=== PATIENT | female | born 1995 | race Two or more races ===

== ENCOUNTER 2024-10-09 05:55 | Day surgery (SDC) | payer MEDICAID, SELFPAY ==
--- NOTE | 2024-10-05 12:10 | ESHP_ITS ---
RE: ANURAG CAM : 1995 DATE OF ADMISSION: 10/09/2024 HISTORY OF PRESENT ILLNESS: This is a 29-year-old female who was seen because of symptomatic cholelithiasis. She was referred by the PAXimena at [facility]. The patient was in her usual health until January when she developed severe pain in the epigastric region radiating to the right side and to the back. She went to her primary care physician and ultrasound was ordered and unfortunately, it was not until June of this year, which revealed the gallstones. In this interval, the patient has had intermittent pain especially after eating. She is nauseated but no vomiting. She denies any history of jaundice or chills. She has had a history of gallstones in her mother who underwent surgery four years ago. The patient denies any other medical illness. PAST MEDICAL HISTORY: Essentially negative. PAST SURGICAL HISTORY: None. PHYSICAL EXAMINATION: GENERAL: Revealed a pleasant 29-year-old healthy female who speaks good Hungarian. She is 5 feet 2 inches tall, weighing 166 pounds. Her BMI is 27.79. VITAL SIGNS: Revealed temperature of 98.1, pulse 84, and BP 127/74. HEENT: Examination of the head normal. Eyes, ears, and throat were normal. NECK: Normal. CHEST: Revealed good breath sounds on both sides. HEART: Sinus rhythm. No murmurs. ABDOMEN: Showed considerable Striae gravidarum in the lower abdomen due to . Upper portion of the abdomen and evaluation showed no tenderness anywhere in the epigastric region or over the right upper quadrant. IMAGING: I reviewed ultrasound done at [facility] on 06/07/2024, which revealed multiple gallstones with thickening of the gallbladder wall suggesting possibly chronic cholecystitis. Common bile duct was normal in size. IMPRESSION: Symptomatic cholelithiasis with chronic cholecystitis. COURSE OF ACTION: I advised the patient to undergo laparoscopic cholecystectomy. The procedure was explained to her in detail and the gallbladder checklist was reviewed with her. The patient is agreeable to the procedure, which is scheduled on 10/09/2024. DT: 11:39:22 TT: 12:09:00 Ref: [id number] - TID: [id number]
[2024-10-08 07:44] VITALS: BMI 29.8
--- NOTE | 2024-10-08 08:10 | SUR.PREOP ---
Pt stated she had syncope episodes since 5 yrs old, she was seen by different Dr's at [facility], the pluck separator told her she had a murmur and will probably outgrow it, she has not follow up since then, pt stated she continues to have syncope episodes but not as frequent the last 2 yrs ago, she passes out and when she wakes up she feels tired for a couple of days, history shared with Dr Farmer and he requested pt to have cardiac clearance.
--- NOTE | 2024-10-08 08:52 | SUR.PREOP ---
Dr Lucio'iwona TRUONG, notified of pt's need for cardiac clearance.
--- NOTE | 2024-10-08 12:57 | SUR.PREOP ---
Dr Lucio called and stated he talked with Dr Farmer and both decided to continue with surgery.
--- NOTE | 2024-10-08 14:32 | EKG_ITS ---
[facility] Test Date: 2024-10-08 Pat Name: ANURAG CHOW Department: Room: - Gender: Female Connie Cleaner: KALPANA : 1995 Requested By: Yancy Kapoor Order Number: [id number] Reading MD: Yancy Kapoor Measurements Intervals Fertile Rate: 75 P: 66 UT: 166 QRS: 31 QRSD: 88 T: 35 QT: 378 QTc: 422 Interpretive Statements SINUS RHYTHM No previous ECG available for comparison /store/S0/[id number]/ecg/[id number].pdf
[2024-10-08 15:39] LABS: Basophils % (Auto) 0 % (0-2.5); Eosinophils % (Auto) 1 % (0-10); Hematocrit 39.3 % (36.0-46.0); Hemoglobin 12.9 g/dL (12.0-16.0); Immature Granulocytes % (Auto) 1 % (0-0); Immature Granulocytes Auto 0.03 Thou/mm3 (0.00-0.00); Lymphocytes # (Auto) 2.3 Thou/mm3 (1.0-4.8); Lymphocytes % (Auto) 39 % (10-50); Mean Corpuscular HGB Conc 32.8 g/dl (31.0-37.0); Mean Corpuscular Hemoglobin 27.5 pg (25.0-35.0); Mean Corpuscular Volume 84 fL (80-100); Monocytes # (Auto) 0.5 Thou/mm3 (0.0-0.8); Monocytes % (Auto) 8 % (0-12); Neutrophils # (Auto) 3.1 Thou/mm3 (1.8-7.7); Neutrophils % (Auto) 52 % (37-80); Nucleated Red Blood Cell % 0 /100 WBC (0); Platelet Count 289 Thou/mm3 (140-440); RDW Standard Deviation 40.3 fL (36.4-46.3); Red Blood Count 4.69 Miln/mm3 (4.00-5.20)
[2024-10-08 15:46] LABS: Partial Thromboplastin Time 29.5 Seconds (22.0-36.0); Prothrombin Time 10.9 Seconds (9.0-12.2)
--- NOTE | 2024-10-08 15:46 | SUR.PREOP ---
Confirm with pt will be here at 0600 tomorrow for surgery.
[2024-10-08 15:49] LABS: HCG Qualitative,Urine Negative
[2024-10-08 15:50] LABS: Alanine Aminotransferase 15 U/L (10-49); Albumin, Serum 4.8 gm/dL (3.5-5.0); Albumin/Globulin Ratio 1.8 (1.2-2.2); Alkaline Phosphatase 60 U/L (46-116); Anion Gap 8 (7-16); Aspartate Amino Transferase < 8 U/L (0-34); BUN/Creatinine Ratio 19 Ratio (12-20); Bilirubin,Total 0.6 mg/dL (0.3-1.2); Blood Urea Nitrogen 13 mg/dL (9-23); Calcium 9.6 mg/dL (8.3-10.6); Calcium (Corrected) 9.6 mg/dL (8.5-10.1); Chloride 104 mMol/L (98-107); Creatinine (Component) 0.7 mg/dL (0.6-1.3); Estimated Creatinine Clearance 113.8 mL/min (>60); Globulin 2.6 gm/dL (2.3-3.5); Glucose 84 mg/dL (74-106); Osmolality,Calculated 274 (275-295); Potassium 4.1 mMol/L (3.4-5.1); Sodium 138 mMol/L (136-145); Total Protein 7.4 gm/dL (5.7-8.2); eGFR > 60 See Note
[2024-10-09] VITALS (8 sets, daily range): BP systolic 115–126; BP diastolic 64–71; PULSE 68–104; RESP 13–20; TEMP 36.6–37.3; O2SAT 96–100
[2024-10-09] MEDS: RINGERS LACTATED 1000 ML 1,000 ML 20 ML IV (06:38)
--- NOTE | 2024-10-09 09:22 | SUR.PHASEI ---
0922: Pt. AAOx4, vitals stable, breathing unlabored, no complaint of pain or nausea, x4 dressing to ABD CDI, no active bleed noted, report received from MD Farmer and Jaqui MIRANDA.
[2024-10-09] MEDS: fentaNYL CIT INJ 50 mCg/ML AMP 2ML IV ×3 (09:33→09:49)
[2024-10-09] MEDS: METOCLOPRAMIDE INJ 5 MG/ML VIAL 2 ML 10 MG IVP (09:33)
--- NOTE | 2024-10-09 09:54 | PD.SUROPNT ---
Date of Procedure 10/09/24 Pre Op Diagnosis Symptomatic cholelithiasis Post Op Diagnosis Same Procedure Laparoscopic cholecystectomy Findings Patient is found to have a noninflamed gallbladder with adhesions and multiple gallstones Procedure Description After endotracheal anesthesia was given the patient was placed in supine position and the abdomen was prepped with chloroprep solution and draped in a sterile manner. After time out was performed I injected a few cc of of half percent Marcaine with epinephrine below the umbilicus and I made an incision for about 3 cm in length. The fascia was cleaned and Veress needle was inserted to create a pneumoperitoneum up to 15 mmHg. Then introduced a 12 mm trocar and a 10 mm camera through the fascia and I inspected the intra-abdominal organs as well as the gallbladder and the liver. Another 5 mm trocar was inserted in the epigastric region under direct vision after injecting some local anesthesia. At this time the patient was kept in reverse Trendelenburg position with the left lateral tilt. The third 5 mm trocar was inserted over the mid axillary line under direct vision and a Boris and Royce grasper was used to hold the fundus of the gallbladder. The retraction was carried out by the assistant mechanic moving the fundus of the gallbladder towards the right shoulder of the patient to create enough traction. I placed a another 5 mm trocar in the midaxillary line just lateral to the rectus muscle under direct vision. I used a fenestrated grasper to retract the neck of the gallbladder laterally towards the patient's right hip. The Calot's triangle was exposed and I achieved the critical view of safety as follows: I dissected out the fatty tissue from the hepatocystic triangle and cleared this area. I also dissected inferior and posterior to the gallbladder to identify the cystic duct and the gallbladder wall. Then superiorly I dissected along the cystic plate up to lower one third third of the gallbladder to lift the gallbladder from the liver. At this time I confirmed that only 2 structures entering the gallbladder were cystic artery and the cystic duct. The common duct was seen distally but no dissection was carried out around the duct. I did not see any need for operative cholangiogram in this patient. The cystic duct was clipped doubly and then divided and cystic artery was similarly dealt with. Then the gallbladder was removed from the liver bed using Harmonic zach to control the small blood vessels as the dissection proceeded. Then the gallbladder was from the liver bed completely and delivered through the umbilical port using an Endopouch. The liver bed was coagulated with cautery to obtain satisfactory hemostasis. The trocars were pulled out from the abdominal cavity and the fascia at the umbilical incision was closed with interrupted 0 Ethibond. Subcutaneous tissues was closed with 3-0 chromic and injected a few cc of half percent Marcaine with epinephrine and the skin was closed with interrupted 4-0 subcuticular Monocryl stitches at all the trocar sites. Dressing was applied with 2 x 2 and Tegaderm. Patient tolerated the procedure well and returned to recovery room in stable condition. Anesthesia GETA Pathology / specimen Other (Gallbladder and the stones) IVF Infused 600 Estimated Blood Loss 10 Condition Stable Disposition PACU Surgeon Yancy Kapoor MD Surgical Staff Operation Date: 10/09/24 08:00 Case Staff Anesthesiologist: Chico Farmer RNforeign broadcast specialist: Olivia Maya
[2024-10-09] MEDS: ONDANSETRON INJ 2 MG/ML INJ 2 ML 4 MG IV (10:11)
--- NOTE | 2024-10-09 10:26 | SUR.PHASEII ---
1026: Pt. AAOx4, vitals stable, breathing unlabored, no complaint of pain or nausea, x4 dressing to ABD CDI, no active bleed noted, Pt. tolerated sips of water well, pt. ambulated to wheelchair with steady gait no assist, no complications, gave discharge instructions to the pt. and her ride, both verbalized understanding and had no further questions. pt. left with all personal belongings.
== END 2024-10-09 10:26 | disposition home or self-care (01) ==
PROVIDERS: Anesthesiology; Referring Provider Surgery; Visit Provider Surgery
PROC: 0FT44ZZ Resection of Gallbladder, Percutaneous Endoscopic Approach (ICD-10-PCS; CPT 47562; principal; 2024-10-09 08:00)
DX: K80.10 Calculus of gallbladder with chronic cholecystitis without obstruction (principal); Z01.810 Encounter for preprocedural cardiovascular examination
CPT/HCPCS: 47562; 36415; 80053; 81025; 85025; 85610; 85730; 93005; A4217; A4649; J0131; J1100; J2250; J2405; J2704; J2710; J2765; J3010; J3490; J7120; J1596

== ENCOUNTER 2025-06-30 18:40 | Emergency (ER) | payer MEDICAID, SELFPAY ==
--- NOTE | 2025-06-30 20:27 | EDNOTE_ITS ---
ED Abdominal Pain RME/HPI General Chief Complaint: Abdominal Pain Stated complaint: ABD PAIN 07/12 Time seen by provider: 06/30/25 19:22 Arrival date/time: 06/30/25 18:40 RME / HPI RME / HPI narrative: DR. STANTON MAIN ED EVALUATION: Patient s/p cholecystectomy October 2024 presents with ongoing epigastric/RUQ abdominal pain x 1 month duration with increased frequency and intensity. Symptoms tend to worsen post-prandially. Recent onset loose stool, nausea without emesis, no fever or chills. Symptoms reminiscent of those prior to cholecystectomy. PMH: Unremarkable. PSH: Cholecystectomy Allergies: None Social: Negative for alcohol, tobacco, and illicit drug abuse. Related Data Previous Rx's ?Medication ?Instructions ?Recorded acetaminophen 300 mg-codeine 15 mg 1 tab PO Q8H PRN pa in #20 tabs 06/30/25 tablet hyoscyamine sulfate 0.125 mg 0.125 mg PO TID PRN cram ping #10 06/30/25 tablet (Levsin) tabs promethazine 12.5 mg tablet 12.5 mg PO TID PRN nausea and 06/30/25 vomiting #14 tabs Allergies Allergy/AdvReac Type Severity Reaction Status Date / Time No Known Allergies Allergy Verified 06/30/25 18:42 Review of Systems Review of Systems Systems Reviewed: All systems reviewed, normal except as documented Past Medical History Past Medical History CARDIAC: Positive Cardiac Disorders (Syncope from 5 to 10yrs, less frequent after that, last 2 yrs ago) and Heart Murmur GASTROINTESTINAL: Positive Gastrointestinal Disorders and Gall Bladder Disease REPRODUCTIVE: Positive Previous Pregnancies Family History FAMILY HISTORY: Positive Family Surgery ED Exam Narrative Physical exam: GEN. APPEARANCE: The patient is alert awake oriented X-3 in no distress, lying down comfortably, does not look ill/toxic. Patient has good eye contact. Patient is cooperative. VITALS: All vitals were reviewed and the pulse ox is 100% on room air which is normal according to my interpretation. HEENT: Normocephalic, atraumatic. Pupils are equal and reactive. Oral mucosa is moist. Patent Nares NECK: Supple, nontender, no thyromegaly, no meningismus, no JVD, no step offs CHEST: Symmetrical, atraumatic, and with equal expansion , Nontender on palpation no deformity and no crepitus. CARDIOVASCULAR: Heart regular rhythm no murmur or gallop rub or extra beats. LUNGS: Clear to auscultation bilaterally with symmetrical chest rise. No laboring tachypnea or wheezing. No intercostal subcostal retraction. No rales and no rhonchi. ABDOMEN: Soft, flat. Mildly tender at mid-epigastric/RUQ, no peritonel findings noted, no guarding or rebound tenderness. There are no abnormal masses palpated. Active and normal bowel sounds. EXTREMITIES: Nontender. No edema. No cyanosis. Patient is able to move all 4 extremities well, with full ROM and good CSM. SKIN: Warm and dry, no jaundice or rashes noted. MUSCULOSKELETAL: No lubar or midline bony tenderness. There is no CVA tenderness. No paraspinal muscle spasm or tenderness. NEURO: Patient is GARZA x 4, Cranial nerves II through XII grossly intact. There is no focal neurologic deficits noted. GCS is 15, PNS and C[employer]S [employer]OTECTION INSPECTOR appear grossly intact. PSYCHIATRIC: Patient is in normal mood and affect, cooperative, no SI or HI or hallucinations. Course Quality Measures none Orders Category Date Time Status US abdomen limited Stat Exams 06/30/25 20:31 Completed CBC [CBC] Stat Lab 06/30/25 20:42 Completed CMP [Comprehensive Metabolic Panel] Stat Lab 06/30/25 20:42 Completed Hepatitis Acute Panel Stat Lab 06/30/25 20:42 Completed Lipase Stat Lab 06/30/25 20:42 Completed HYDROcodone*/APAP 5/325 [[place] 5/325] Med 06/30/25 20:31 Discontinued 1 tab PO X1 ONE Ondansetron Odt [Zofran Odt] Med 06/30/25 20:31 Discontinued 4 mg PO X1 ONE Vital Signs Vital signs: Vital Signs Temperature 98.7 F 06/30/25 21:50 Pulse Rate 71 06/30/25 21:50 Respiratory Rate 18 06/30/25 21:50 Blood Pressure 129/73 06/30/25 21:50 Pulse Oximetry (%) 100 06/30/25 21:50 Oxygen Delivery Method Room Air 06/30/25 21:50 Abdominal Pain MDM MDM Narrative MDM Narrative:: Scribe Attestation: I, Nila Graff, am scribing for and in the presence of Dr. Stanton. Provider Notation: Although this document has been carefully reviewed, there may still be some phonetic and other typographical errors. These errors are purely grammatical due to imperfections in the software program and should not be construed in any way to compromise the substance of the patient's medical care during this visit. Patient s/p cholecystectomy October 2024 presents with ongoing epigastric/RUQ abdominal pain x 1 month duration with increased frequency and intensity. Symptoms tend to worsen post-prandially. Please see PE findings. Laboratory markers demonstrate normal WBC of 7.2, no anemia, no thrombocytopenia. No left shift or associated bandemia. Serum chemistries demonstrate elevated Chloride of 113, and increased transaminases: AST 276 and ALT 137. Total bilirubin, Alkaline phosphatase, and Albumin are normal. A limited abdominal US was performed which demonstrates a normal CBD and without evidence of hepatic lesion, no fluid within gall bladder fossa. Low-dose IM narcotic analegesics/anit-emetics administered with subjective [id number] relief. No critical process identifiable at this time. Will treat symptomatically and will refer to PMD for F/U. Final diagnosis includes RUQ abdominal pain and ? early Hepatitis. Precautionary instructions issued, F/U with PMD advised. Patient data External records reviewed:: [facility] previous records (No recent ED records available for review) Clinical information provided by:: patient Social determinants that could affect healthcare access:: none Patient has the following chronic illnesses:: None reported How is presenting disease/condition affected by chronic disease/condition?: no chronic disease Evaluation data The following diagnostics were reviewed and interpreted by me:: lab results and radiology exam(s) Lab and/or radiology exams considered but not ordered:: None Interpretation Summary: RADIOLOGY Abdomen US: Findings: Absent gallbladder Normal common bile duct 0.3 cm Pancreatic head 2.0 cm Liver 12.7 cm no liver lesions Normal hepatopedal portal venous flow Patent IVC Impression: Absent gallbladder Normal common bile duct Medications / Prescriptions Medications or Prescriptions considered but not ordered:: None Medication administrations:: Medication Administration History Discontinued Medications Hydrocodone Bitart/Acetaminophen (Hydrocodone/Apap 5/325 Tablet) 1 tab PO X1 ONE Stop: 06/30/25 20:32 Last Admin: 06/30/25 22:24 Dose: 1 tab Documented By: ELLEN Ondansetron HCl (Ondansetron Odt 4 Mg Tabrap) 4 mg PO X1 ONE; Protocol Stop: 06/30/25 20:32 Last Admin: 06/30/25 22:23 Dose: 4 mg Documented By: ELLEN See above if any Consultations Consultation(s) initiated? (list below): No Diagnosis Differential diagnosis abdominal pain: abdominal pain, acute appendicitis, calculus of kidney, constipation, diverticulitis, gastroenteritis, pancreatitis and small bowel obstruction Most likely diagnosis given after review of the tests above:: RUQ Abdominal Pain, ? Early Onset Hepatitis Admission Indicated Admission indicated?: not indicated Explain why admission is indicated or not indicated:: Patient does not meet admission criteria Admission Request Was there a request for admission?: No Disposition Plan Disposition Plan: Discharge Discharge Attestation Discharge Attestation: The patient and all family members were given an opportunity to ask questions and understood the discharge instructions. Discharge instructions specifically effects, indications for sooner follow up or return to the emergency department, and the expected course of current diagnosis. Patient condition: Stable Discharge Plan Plan Patient Disposition: HOME (Self Care) Discharge Disposition comment: Stable Prescriptions/Referrals Prescriptions/Med Rec: New hyoscyamine sulfate [Levsin] 0.125 mg tablet 0.125 mg PO TID PRN (Reason: cramping) Qty: 10 0RF promethazine 12.5 mg tablet 12.5 mg PO TID PRN (Reason: nausea and vomiting) Qty: 14 0RF acetaminophen-codeine 300-15 mg tablet 1 tab PO Q8H PRN (Reason: pain) Qty: 20 0RF Referrals: Ximena Ridley PA-C [Primary Care Provider] - In 1 week Problem List Clinical Impression: Inflammatory liver disease, unspecified, Right upper quadrant abdominal pain Patient/Caregiver Discharge Instructions Discharge Activity: activity as tolerated Education Materials: Tests for Liver Disease Additional Instructions: Maintain bland diet for proxy 3 to 5 days. Follow with primary care doctor as scheduled for repeat liver function tests lipase analysis. Return for fever vomiting escalating abdominal pain or general worse condition. Print Language: Malawian Stand Alone Forms: Em Award Info., Patient Portal Info Letter
--- NOTE | 2025-06-30 20:31 | XR_ITS ---
Examination: Abdomen sonogram, Limited Date and time of exam: June 30, 2025, 1846 hrs. Indications: Right upper abdominal pain beginning one month ago Technique: Real-time cheney scale transabdominal sonographic images of the upper abdomen obtained. Findings: Absent gallbladder Normal common bile duct 0.3 cm Pancreatic head 2.0 cm Liver 12.7 cm no liver lesions Normal hepatopedal portal venous flow Patent IVC Impression: Absent gallbladder Normal common bile duct
[2025-06-30 20:53] LABS: Basophils # (Auto) 0.0 Thou/mm3 (0.0-0.2); Basophils % (Auto) 0 % (0-2.5); Eosinophils # (Auto) 0.1 Thou/mm3 (0.0-0.5); Eosinophils % (Auto) 1 % (0-10); Hematocrit 38.4 % (36.0-46.0); Hemoglobin 12.7 g/dL (12.0-16.0); Immature Granulocytes Auto 0.01 Thou/mm3 (0.00-0.00); Lymphocytes # (Auto) 1.1 Thou/mm3 (1.0-4.8); Lymphocytes % (Auto) 15 % (10-50); Mean Corpuscular HGB Conc 33.1 g/dl (31.0-37.0); Mean Corpuscular Hemoglobin 29.7 pg (25.0-35.0); Mean Corpuscular Volume 90 fL (80-100); Monocytes # (Auto) 0.4 Thou/mm3 (0.0-0.8); Monocytes % (Auto) 6 % (0-12); Neutrophils # (Auto) 5.7 Thou/mm3 (1.8-7.7); Neutrophils % (Auto) 78 % (37-80); Nucleated Red Blood Cell # 0.00 Thou/mm3 (0.00-0.00); Nucleated Red Blood Cell % 0 /100 WBC (0); Platelet Count 214 Thou/mm3 (140-440); RDW Standard Deviation 41.9 fL (36.4-46.3); Red Blood Count 4.28 Miln/mm3 (4.00-5.20); White Blood Count 7.2 Thou/mm3 (3.6-11.0)
[2025-06-30 21:18] LABS: Alanine Aminotransferase 137 U/L (10-49); Albumin, Serum 4.3 gm/dL (3.5-5.0); Albumin/Globulin Ratio 1.7 (1.2-2.2); Alkaline Phosphatase 69 U/L (46-116); Anion Gap 7 (7-16); Aspartate Amino Transferase 276 U/L (0-34); BUN/Creatinine Ratio 13 Ratio (12-20); Bilirubin,Total 0.5 mg/dL (0.3-1.2); Blood Urea Nitrogen 8 mg/dL (9-23); Calcium 9.0 mg/dL (8.3-10.6); Calcium (Corrected) 9.0 mg/dL (8.5-10.1); Carbon Dioxide 23.7 mMol/L (20.0-31.0); Chloride 113 mMol/L (98-107); Creatinine (Component) 0.6 mg/dL (0.6-1.3); Globulin 2.6 gm/dL (2.3-3.5); Glucose 95 mg/dL (74-106); Lipase 36 U/L (12-53); Osmolality,Calculated 285 (275-295); Potassium 4.3 mMol/L (3.4-5.1); Sodium 144 mMol/L (136-145); Total Protein 6.9 gm/dL (5.7-8.2); eGFR > 60 See Note
[2025-06-30 21:50] VITALS: BP 129/73; PULSE 71; RESP 18; TEMP 37.1; O2SAT 100
[2025-06-30] MEDS: ONDANSETRON ODT 4 MG TABRAP PO (22:23)
[2025-06-30] MEDS: HYDROcodone/APAP 5/325 TABLET 1 TAB PO (22:24)
[2025-06-30 23:31] LABS: Hepatitis A Antibody IgM Non Reactive (Non React); Hepatitis B Core Antibody IgM Non Reactive (Non React); Hepatitis B Surface Antigen Non Reactive (Non React); Hepatitis C Antibody Non Reactive (Non React)
== END 2025-06-30 22:53 | disposition home or self-care (01) ==
PROVIDERS: Emergency Provider Emergency Medicine
DX: K75.9 Inflammatory liver disease, unspecified (principal); R10.11 Right upper quadrant pain
CPT/HCPCS: 36415; 76705; 80053; 80074; 81001; 81025; 83690; 85025; 99283; Q0162; A9270